=== PATIENT | male | born 1990 | race African-American/Black ===

== ENCOUNTER 2017-10-18 17:57 | Emergency (ER) | payer OTHER, BC ==
[2017-10-18 18:08] VITALS: BP 131/78
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
== END 2017-10-18 21:08 | disposition home or self-care (01) ==
LOC: ER 17:57
DX: S16.1XXA Strain of muscle, fascia and tendon at neck level, initial encounter (principal); S39.012A Strain of muscle, fascia and tendon of lower back, initial encounter; V43.52XA Car driver injured in collision with other type car in traffic accident, initial encounter; M54.2 Cervicalgia; M62.830 Muscle spasm of back; M54.6 Pain in thoracic spine
CPT/HCPCS: 72040; 72110; 99283